=== PATIENT | female | born 1945 | race Caucasian/White ===

== ENCOUNTER → 2016-09-20 | Outpatient (CLI) | payer OTHER ==
[~2016-09-20] MED LIST: ADVAIR HFA 230M1 AER INH; ASACOL HD800 MG PO; BACTRIM DS TAB1 EACH PO; DULERA 100 MCG/13 GM INH; MUCINEX600 MG PO; NAPROSYN500 MG PO; NORCO 5-325 TA1 EACH PO; OMEPRAZOLE20 M2 PO; OMEPRAZOLE40 MG PO; PREDNISONE 10 M10 M1; PREDNISONE 5 MG5 MG PO; PROMETHAZINE-C120 ML PO; PROVENTIL HFA6.7 G1 INH; SYNTHROID50 MCG PO
== END ==
LOC: ULTRA 09:35
DX: E04.1 Nontoxic single thyroid nodule (principal)

== ENCOUNTER → 2016-10-10 | Outpatient (CLI) | payer OTHER ==
--- NOTE | ~2016-10-10 | CNG ---
[facility] [place] [address] CYTO-NONGYN REPORT PROCEDURE Name: MANDY FARRIS Room #: REG [facility].#: [id number] Admission: 10/10/16 Date of : 47 Discharge: Report #: [id number] Path Case #: [id number] CYTOPATHOLOGY REPORT COLLECTION DATE: 10/10/2016 RECEIVED DATE: 10/10/2016 SUBMITTING PHYS: Dr. Tung Ren Jr. OTHER PHYS: Dr. Michele Burns CLINICAL HISTORY: Goiter, Dysphagia, Pharyngitis. PROCEDURE: A. Passes performed by the radiologist under ultrasound guidance yielding fluid. Three fixed slides, three air-dried slides, and 30 mL from needle rinsed in fixative were submitted to the lab. SPECIMEN(S) RECEIVED: A.US guided Fine needle aspiration, thyroid * * * * * * * * * * * * FINAL DIAGNOSIS: A. US guided Fine needle aspiration, thyroid: BETHESDA CATEGORY II: BENIGN. SPECIMEN CONSISTS OF ABUNDANT FOLLICULAR CELLS, HEMOSIDERIN-LADEN MACROPHAGES, COLLOID AND BLOOD. (SEE COMMENT) COMMENT: The findings likely represent a benign adenomatous nodule. No classic cytologic features of papillary carcinoma are identified. Of note, this is a small portion of a larger lesion and may not be entirely traveling sales representative. Clinical and radiographic correlation is recommended. A traveling sales representative slide (ThinPrep) is co-reviewed with Dr. Petra La. (DESW:armani; d/t: 10/11/2016) PATHOLOGIST: Renetta Young M.D. REPORT ELECTRONICALLY SIGNED BY: Renetta Young M.D. DATE/TIME: 10/11/2016 14:31 * * * * * * * * * * * * GROSS PATHOLOGY: A. US guided Fine needle aspiration, thyroid: The specimen is labeled "Mandy Farris" and consists of three fixed slides and three air dried slides. Thirty mL of clear pink fluid in fixative from the needle rinse is also submitted and one ThinPrep slide and a cell block were prepared from this material. (clt 10.10.2016) Also received is the RNARetain vial which will be held for molecular studies if needed. [address] [address] CYTO-NONGYN REPORT PROCEDURE Name: MANDY FARRIS [id number] Admission: 10/10/16 Date of : 47 Discharge: Report #: [id number] Path Case #: [id number] LMSW(S): TANIKA Rangel(ASCP) INITIAL CPT CODE(S): A; 85918, 85673 Professional services performed by [facility] at [address] , [place] [address] Technical services performed by [facility] at [address] [place] [address]., [address], [place] [address]. [facility] [address] [place] [address], [address] [place] [address] PHONE: [phone] DIRECTOR: Kris Sethi M.D. * * * END OF REPORT * * *
== END | disposition home or self-care (01) ==
LOC: ULTRA 02:15
DX: E04.1 Nontoxic single thyroid nodule (principal)

== ENCOUNTER → 2018-11-22 | Outpatient (CLI) | payer OTHER ==
[2018-11-22 09:01] LABS: CREATININE 0.8 mg/dL (0.6-1.0)
== END ==
LOC: CAT 08:12
PROVIDERS: Family Medicine
DX: I67.1 Cerebral aneurysm, nonruptured (principal); I65.23 Occlusion and stenosis of bilateral carotid arteries; E04.1 Nontoxic single thyroid nodule; E89.0 Postprocedural hypothyroidism; I10 Essential (primary) hypertension; Z88.0 Allergy status to penicillin; Z88.8 Allergy status to other drugs, medicaments and biological substances

== ENCOUNTER → 2019-01-28 | Outpatient (CLI) | payer OTHER | LOC: ULTRA 08:16 | DX: E04.2 Nontoxic multinodular goiter (principal); E89.0 Postprocedural hypothyroidism; J30.9 Allergic rhinitis, unspecified ==

== ENCOUNTER → 2020-11-05 | Outpatient (CLI) | payer OTHER | LOC: SJCVCIMAG 06:40 | PROVIDERS: ATTEND Family Medicine | DX: I65.21 Occlusion and stenosis of right carotid artery (principal); E11.9 Type 2 diabetes mellitus without complications; I10 Essential (primary) hypertension; R55 Syncope and collapse; I63.9 Cerebral infarction, unspecified; Z87.891 Personal history of nicotine dependence; Z79.899 Other long term (current) drug therapy ==

== ENCOUNTER → 2020-11-22 | Outpatient (CLI) | payer OTHER ==
[2020-11-22 11:09] LABS: CREATININE 0.8 mg/dL (0.6-1.0)
== END ==
LOC: MRI 10:03
PROVIDERS: ATTEND Family Medicine
DX: I63.9 Cerebral infarction, unspecified (principal)